=== PATIENT | female | born 1945 | race Caucasian/White ===

== ENCOUNTER → 2017-11-22 09:01 | Outpatient (POV) | payer MEDICARE, SELFPAY | PROVIDERS: Family Provider Internal Medicine; Visit Provider Physician Assistant | DX: Z00.00 Encounter for general adult medical examination without abnormal findings (principal) ==

== ENCOUNTER → 2018-09-09 10:29 | Outpatient (CLI) | payer MEDICARE, SELFPAY ==
--- NOTE | 2018-09-09 10:31 | MM_ITS ---
MM Dig screening mamm BI w/CAD ORDERING PHYSICIAN : Milka De Souza PATIENT AGE: 73 years GENDER: Female COMPARISON: April 2017, March 2015, August 2013 INDICATION: ITS.REASON: SCREENING no hormones. No new complaints. Previous stereotactic biopsy left breast. family history. Maternal aunt with breast cancer TECHNIQUE: Standard CC and MLO images were obtained. R2 CAD reviewed. Additional axillary cc view right breast FINDINGS: Dense heterogeneous breast. Decreased sensitivity mammography in breast of this dense character. However the prior films are quite helpful & comparison to those from reveal no new suspicious or dominant focal new mass lesion . RIGHT BREAST:No significant change. 2015 best comparison Stable benign calcifications at the deep lateral right breast. LEFT BREAST:The axillary cc view is very helpful on this series. Areas of density seen on the routine cc view dissipate on axillary cc view and MLO view. With reviewing all 3 images the left breast appears consistent and stable with previous studies. If Dr. Martini's IMPRESSION: No new findings of significant concern.Bilateral Follow up one year recommended Moderate Dense breast pattern does decreases sensitivity mammography but but no appreciable change since prior studies. BI-RADS Category: 2 Benign Finding(s) RECOMMENDED FOLLOW-UP: 1YR 1 YEAR FOLLOW-UP (A letter has been sent to the patient regarding results of the study.)
== END ==
PROVIDERS: PCP Nurse Practitioner Family; Visit Provider Nurse Practitioner Family
DX: Z12.31 Encounter for screening mammogram for malignant neoplasm of breast (principal)
CPT/HCPCS: 77067

== ENCOUNTER → 2020-09-09 15:10 | Outpatient (CLI) | payer MEDICARE, SELFPAY ==
--- NOTE | 2020-09-09 15:12 | MM_ITS ---
PROCEDURE: MM DIG SCREENING MAMM BI W/CAD Digital Breast Tomosynthesis Included CLINICAL INDICATION: SCREENING There is a history of breast cancer in the patient's paternal aunt. There has been a previous biopsy left breast for benign disease. COMPARISON: MG [facility] DIG MAMM-SCREEN DILIA from 04/03/2015 MG [facility] DIG MAMM-SCREEN DILIA W/CAD from 04/08/2017 MG [facility] MM Dig screening mamm BI w/CAD from 09/09/2018 TECHNIQUE: Standard CC and MLO images and 3D Tomosynthesis was obtained. R2 CAD reviewed. FINDINGS: Prominent diffuse somewhat heterogenic fibroglandular densities are seen in the subareolar regions and central portions of both breasts. The findings of bilateral and symmetrical. There couple of benign-appearing calcifications in each breast. Jacinto images are most helpful in this type of dense breast parenchyma. There is no new or suspicious lesion in either breast and no suspicious microcalcifications. IMPRESSION: Stable diffusely dense parenchymal pattern with no suspicious lesions seen BI-RAD Category: 2 Benign Finding(s) FOLLOW-UP: 1YR 1 Year Follow-up (A letter has been sent to the patient regarding results of the study.) Dictated by: Dr. Jamaal Haider MD 09/10/2020 11:42 Dr. Jamaal Haider MD in [place] 09/10/2020 11:42
== END ==
PROVIDERS: PCP Nurse Practitioner Family; Visit Provider Nurse Practitioner Family
DX: Z12.31 Encounter for screening mammogram for malignant neoplasm of breast (principal)
CPT/HCPCS: 77063; 77067

== ENCOUNTER → 2021-03-06 14:58 | Outpatient (CLI) | payer MEDICARE, SELFPAY ==
--- NOTE | 2021-03-06 15:05 | XR_ITS ---
PROCEDURE: XR CERVICAL SPINE 5V CLINICAL INDICATION: CERVICAL NEURALGIA COMPARISON: No exams were available for comparison FINDINGS: Normal Alignment No fracture or dislocation. No lytic or blastic change. There is slight decrease in the C5-C6 disc space with minimal spurring along the inferior anterior aspect of C5 no significant foraminal narrowing. IMPRESSION: Mild degenerative disc disease C5-C6. Dictated by: Armani Martini MD 03/06/2021 17:41 Armani Martini MD in [place] 03/06/2021 17:41
== END ==
PROVIDERS: PCP Nurse Practitioner Family; Visit Provider Nurse Practitioner Family
DX: M54.12 Radiculopathy, cervical region (principal)
CPT/HCPCS: 72050

== ENCOUNTER → 2021-10-10 08:38 | Outpatient (CLI) | payer MEDICARE, SELFPAY ==
[2021-10-10 09:03] LABS: Basophils # 0.1 K/mm3 (0-0.2); Basophils % 1.1 % (0.1-2.0); Eosinophils # 0.1 K/mm3 (0.0-0.4); Eosinophils % 1.5 % (0.1-12.0); Hematocrit 39.1 % (37.0-47.0); Hemoglobin 12.9 g/dL (12.2-16.2); Lymphocytes # 2.5 K/mm3 (0.7-4.5); Lymphocytes % 35.2 % (10-50); Mean Corpuscular HGB Conc 33.1 g/dL (31.8-35.4); Mean Corpuscular Hemoglobin 32.9 pg (27.0-31.2); Mean Corpuscular Volume 99.5 fl (81-99); Mean Platelet Volume 8.6 fl (7.4-10.4); Monocytes # 0.4 K/mm3 (0.1-1.0); Monocytes % 5.5 % (1.7-9.3); Neutrophils # 4.1 K/mm3 (1.8-7.8); Neutrophils % 56.5 % (37.0-80.0); Platelet Count 326 K/mm3 (142-424); Red Blood Count 3.93 M/mm3 (4.20-5.40); Red Cell Distribution Width 12.9 % (11.5-17.5); White Blood Count 7.2 K/mm3 (4.8-10.8)
[2021-10-10 10:38] LABS: Alanine Aminotransferase 9 U/L (12-78); Albumin Level 4.4 g/dl (3.5-5.0); Albumin/Globulin Ratio 1.7 (1.1-1.8); Alkaline Phosphatase 101 U/L (38-126); Anion Gap 11.5 mEq/L (5-15); Aspartate Amino Transferase 28 U/L (14-36); Bilirubin,Total 0.3 mg/dl (0.2-1.3); Blood Urea Nitrogen 19 mg/dl (7-17); Calcium 10.1 mg/dl (8.4-10.2); Carbon Dioxide 30 mmol/L (22.0-30.0); Chloride 101 mmol/L (98-107); Chol/HDL Ratio 2.9 (1-3.5); Cholesterol 220 mg/dl (140-200); Estimated Glomerular Filt Rate 44 ml/min (>60); GFR (African American) 53 ML/MIN (>60); Globulin 2.6 g/dL (1.3-3.2); Glucose 101 mg/dl (74-100); HDL Cholesterol 76 mg/dl (40-60); Magnesium 1.4 mg/dl (1.6-2.3); Potassium 3.5 mmoL/L (3.5-5.1); Sodium 139 mmol/L (136-145); Triglycerides 145 mg/dl (30-150); VLDL Cholesterol 29 mg/dL (0-40)
[2021-10-10 10:57] LABS: 25-OH Vitamin D, Total 45.3 ng/mL (30-100)
[2021-10-10 19:25] LABS: Vitamin B12 > 1000 pg/mL (239-931)
== END ==
PROVIDERS: Visit Provider Nurse Practitioner Family
DX: I10 Essential (primary) hypertension (principal); E78.5 Hyperlipidemia, unspecified; E53.8 Deficiency of other specified B group vitamins; E55.9 Vitamin D deficiency, unspecified
CPT/HCPCS: 36415; 80053; 80061; 82306; 82607; 83735; 85025

== ENCOUNTER 2025-02-12 10:24 | Outpatient (CLI) | payer MEDICARE, SELFPAY ==
--- NOTE | 2025-02-12 10:30 | XR_ITS ---
FINAL REPORT CLINICAL HISTORY: SACROILIAC PAIN x years, no known trauma FINDINGS: SACROILIAC JOINTS There is no acute fracture. The sacral arches are intact. The joint spaces are preserved. There is no soft tissue abnormality. IMPRESSION: No acute process. Reviewed, Interpreted and Dictated by Reji Wallace MD Transcribed by Anabel Butler Authenticated and [facility]
== END 2025-02-12 23:59 | disposition home or self-care (01) ==
LOC: RAD 10:26
PROVIDERS: PCP Nurse Practitioner Family; Visit Provider Nurse Practitioner Family
DX: M53.3 Sacrococcygeal disorders, not elsewhere classified (principal)
CPT/HCPCS: 72202